=== PATIENT | female | born 1970 | race Caucasian/White ===

== ENCOUNTER 2016-07-30 21:00 | Emergency (ER) | payer BC ==
[2016-07-30 21:06] VITALS: TEMP 98.8
--- NOTE | 2016-07-30 22:09 | DX ---
Left ankle, 3 views at 2149 hours History: Trauma, pain, fall off horse. Findings: Oblique fracture of the distal metaphysis of the left fibula extending into the ankle morti se with 3 mm of displacement of the distal fragment laterally. Slight widening of ankle mortise. No d efinite distal tibial medial malleolus fracture. Talar dome appears intact. Lateral soft tissue swell ing. Impression: Oblique slightly displaced distal fibula lateral malleolus fracture.
--- NOTE | 2016-07-30 22:45 | EDPHY ---
H & P Stated Complaint: L ankle injury 07/28 fall from horse, also has pain L knee medially - Personal History LMP (Females 10-55): 15-21 Days Ago Current Tetanus/Diphtheria Vaccine: Yes - Medical/Surgical History Hx Asthma: No Hx Chronic Respiratory Disease: No Hx Diabetes: No Hx Cardiac Disease: No Hx Renal Disease: No Hx Cirrhosis: No Hx Alcoholism: No Hx HIV/AIDS: No Hx Splenectomy or Spleen Trauma: No Other PMH: PSHx: denies. PMHx: denies - Social History Smoking Status: Never smoked HPI/ROS: CHIEF COMPLAINT: ankle pain HISTORY OF PRESENT ILLNESS: patient fell from a horse on Wednesday, landing primarily on the left leg. She felt a sudden onset of pain with rotational injury to the left lateral ankle medial knee. She has some [id number] amount of pain on the lateral ankle. No medial pain. Minimal pain to the medial knee. Pain does not radiate. It is worse with palpation and ambulation. She remains ambulatory this week despite the pain. Does improve with rest. No ipsilateral foot, heel or johnson pain. No other associated complaints or modifying factors. REVIEW OF SYSTEMS: Ten systems reviewed and are negative unless otherwise noted in the HPI EXAMINATION General Appearance: Alert, no distress Head: normocephalic, atraumatic Eyes: Pupils equal and round, no conjunctival pallor or injection ENT, Mouth: Mucous membranes moist Neck: Normal inspection Respiratory: No dyspnea or retractions. No distress Cardiovascular: Pulses normal throughout. Brisk cap refill Gastrointestinal: No distention Back: non-tender, no bony abnormalities Neurological: A&O, sensory symmetric, strength symmetric Skin: Warm and dry, no rash , ecchymosis to the lateral aspect of the foot on the dorsum. No laceration or abrasion Extremities: left lower extremity: Tenderness to palpation to the lateral malleolus. Edema to the dorsum of the foot. Range of motion is intact but painful. There is no tenderness of the mid foot, heel or medial malleolus. Neurovascular intact distally with brisk cap refill Psychiatric: Mood and affect normal MDM: fall with left distal fibular fracture, oblique with displacement. This is a closed fracture. She remains neurovascularly intact distal to the injury. We attempted a walker boot but this was too painful. Thus we will place her in a short-leg posterior splint and provided crutches. Given the severity of the injury I would like her to remain nonweightbearing with the splint and crutches until she sees an orthopedist for definitive care. 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 She will follow up accordingly. ED Precautions: Worsening pain. Erythema, edema, cyanosis, pallor, paresthesia or anesthesia. SUPERVISION: This patient was independently evaluated without the aide of supervising physician. (Gregorio Bailey) Constitutional: Initial Vital Signs Temperature (C) 37.1 C 07/30/16 21:02 Heart Rate 107 H 07/30/16 21:02 Respiratory Rate 14 07/30/16 21:02 Blood Pressure 128/70 H 07/30/16 21:02 O2 Sat (%) 100 07/30/16 21:02 O2 Delivery Mode Room Air Allergies/Adverse Reactions: No Known Allergies Allergy (Unverified 07/30/16 21:02) Home Medications: Medication Instructions Recorded Hydrocodone/APAP 5/325 [[place] 1 - 2 tab PO Q6H PRN #20 tab 07/30/16 5/325 (*)] Medical Decision Making Other Provider: The patient was evaluated and managed by the midlevel provider. My co- signature indicates that I have reviewed this chart and I agree with the findings and plan of care as documented. I am the secondary supervising physician. (Alisha Delarosa) Departure - Departure Disposition: Home, Routine, Self-Care Clinical Impression: Fracture of distal end of left fibula Condition: Good Instructions: Leg Fracture (ED), Ankle Fracture (ED) Additional Instructions: Follow-up with Ortho for definitive care. Weightbearing as tolerated in the boot. Nonweightbearing without the boot Referrals: NONE *PRIMARY CARE P,. [Primary Care Provider] - As per Instructions Je Nguyễn MD [Medical Doctor] - As per Instructions Prescriptions: Hydrocodone/APAP 5/325 [[place] 5/325 (*)] 1 - 2 tab PO Q6H PRN #20 tab PRN Reason: Pain, Mild
[2016-07-30 23:15] VITALS: BP 128/99; PULSE 80; RESP 18; O2SAT 99
== END 2016-07-30 23:14 | disposition home or self-care (01) ==
DX: S82.832A Other fracture of upper and lower end of left fibula, initial encounter for closed fracture (principal); V80.010A Animal-rider injured by fall from or being thrown from horse in noncollision accident, initial encounter; Y92.410 Unspecified street and highway as the place of occurrence of the external cause; Y99.8 Other external cause status; Y93.52 Activity, horseback riding